=== PATIENT | male | born 1995 ===

== ENCOUNTER 2017-09-22 14:00 | Emergency (ER) | payer SELFPAY ==
[2017-09-22 14:24] VITALS: BP 134/76; PULSE 64; TEMP 98.5; O2SAT 100
--- NOTE | 2017-09-22 14:36 | C.PDOC ---
History Of Present Illness 22 year old male presents to the emergency department with a complaint of a cough, congestion, and runny nose x3 days. Reports his child and girlfriend are with him for the same symptoms. Denies fever. Time Seen by Provider: 09/22/17 14:13 Chief Complaint (Nursing): Cough, Cold, Congestion History Per: Patient History/Exam Limitations: no limitations Past Medical History Reviewed: Historical Data, Nursing Documentation, Vital Signs Vital Signs: Last Vital Signs Temp 98.5 F 09/22/17 14:22 Pulse 64 09/22/17 14:22 Resp 18 09/22/17 14:22 BP 134/76 09/22/17 14:22 Pulse Ox 100 09/22/17 14:37 - Medical History PMH: No Chronic Diseases Surgical History: No Surg Hx Family History: States: Unknown Family Hx - Social History Hx Tobacco Use: Yes Hx Alcohol Use: No Hx Substance Use: No - Immunization History Hx Tetanus Toxoid Vaccination: No Hx Influenza Vaccination: Yes Hx Pneumococcal Vaccination: No Review Of Systems Except As Marked, All Systems Reviewed And Found Negative. (As per HPI, otherwise negative) Constitutional: Negative for: Fever ENT: Positive for: Nose Discharge, Nose Congestion Respiratory: Positive for: Cough (Dry) Physical Exam - Physical Exam Appears: Well, Non-toxic, Toxic Skin: Normal Color, Warm, Dry Head: Atraumatic, Normacephalic Nose: Normal Tongue: Normal Appearing Lips: Normal Appearing Teeth: Normal Dentition Gingiva: Normal Appearing Throat: Normal, No Erythema Cardiovascular: Rhythm Regular, No Murmur Respiratory: Normal Breath Sounds, No Decreased Breath Sounds, No Accessory Muscle Use, No Wheezing Extremity: Normal ROM, No Pedal Edema Neurological/Psych: Oriented x3 (Alert) ED Course And Treatment O2 Sat by Pulse Oximetry: 100 (RA) Pulse Ox Interpretation: Normal Disposition - Disposition Disposition: HOME/ ROUTINE Disposition Time: 14:36 Condition: STABLE Prescriptions: Promethazine [Phenergan Syrup] 12.5 mg PO Q12 PRN #100 ml PRN Reason: Cough Forms: [facility] (French) - Clinical Impression Clinical Impression: Upper respiratory infection - Scribe Statement Scribe~Attestation: Documented by Angeles Florian, acting as a scribe for Cortez Cervantes MD. ~ Provider Scribe~Attestation: All medical record entries made by the Scribe were at my direction and personally dictated by me. I have reviewed the chart and agree that the record accurately reflects my personal performance of the history, physical exam, medical decision making, and the department course for this patient. I have also personally directed, reviewed, and agree with the discharge instructions and disposition.
[2017-09-22 14:44] VITALS: RESP 16
== END 2017-09-22 14:43 | disposition home or self-care (01) ==
LOC: C.ER 14:00
DX: J06.9 Acute upper respiratory infection, unspecified (principal)